=== PATIENT | male | born 1945 | race Caucasian/White ===

== ENCOUNTER → 2018-02-10 | Outpatient (CLI) | payer MEDICARE, OTHER ==
[~2018-02-10] MED LIST: AMLO-96 PO; AZIT-17 PO; HYDR-385 PO; IBU800 PO; LEVO75TA73 PO; LOR5 PO; LOSA-57 PO; OLME1TAB67 PO; PRAV10TA46 PO
[2018-02-10 11:21] LABS: PLATELET COUNT, AUTOMATED 170 K/uL (150-450)
== END ==
LOC: LAB 11:02
PROVIDERS: ATTEND Internal Medicine
DX: I10 Essential (primary) hypertension (principal); R78.79 Finding of abnormal level of heavy metals in blood; E78.5 Hyperlipidemia, unspecified
CPT/HCPCS: 36415; 81256; 82040; 82247; 82310; 82374; 82435; 82565; 82728; 82947; 83540; 83550; 84075; 84132; 84155; 84295; 84450; 84460; 84520; 85025